=== PATIENT | female | born 1995 | race Caucasian/White ===

== ENCOUNTER 2016-08-31 17:57 | Emergency (ER) | payer BC ==
[2016-08-31 19:13] VITALS: BP 120/71
--- NOTE | 2016-08-31 19:23 | UC ---
Throat Pain/Nasal Eric HPI - HPI Summary HPI Summary: ST since 08/26/16. Getting worse. 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 No fever. Difficulty swallowing. Serology from 2013 in her chart shows pt has had prior mono. Pt does not recall mono. - History of Current Complaint Chief Complaint: UCGeneralIllness Stated Complaint: SORE THROAT Time Seen by Provider: 08/31/16 19:13 Hx Obtained From: Patient Hx Last Menstrual Period: 08/04-08/12 ?: No Onset/Duration: Sudden Onset, Lasting Hours, Still Present Severity: Moderate Pain Intensity: 5 Pain Scale Used: 0-10 Numeric Cough: None Associated Signs & Symptoms: Positive: Dysphagia, Drooling - but is able to swallow when she tries, it is just difficult - Allergies/Home Medications Allergies/Adverse Reactions: Allergies Allergy/AdvReac Type Severity Reaction Status Date / Time Latex Allergy Hives Verified 08/31/16 19:05 Home Medications: Home Medications Cetirizine* [ZyrTEC 10 MG TAB*] 1 tab DAILY 08/31/16 [History Confirmed 08/31/16 ] Ibuprofen TAB* [Advil TAB*] 400 mg Q4HR PRN 08/31/16 [History Confirmed 08/31/16 ] PMH/Surg Hx/FS Hx/Imm Hx Previously Healthy: Yes - Surgical History Surgical History: Yes Surgery Procedure, Year, and Place: appy, hernia - Family History Known Family History: Positive: Hypertension - Social History Occupation: Employed Full-time Lives: With Family Alcohol Use: Occasionally Substance Use Type: None Smoking Status (MU): Never Smoked Tobacco Review of Systems Constitutional: Negative Skin: Negative Eyes: Negative ENT: Sore Throat Respiratory: Negative Cardiovascular: Negative Gastrointestinal: Negative Genitourinary: Negative Motor: Negative Neurovascular: Negative Musculoskeletal: Negative Neurological: Negative Psychological: Negative All Other Systems Reviewed And Are Negative: Yes Physical Exam Triage Information Reviewed: Yes Appearance: Well-Nourished, Ill-Appearing, Pain Distress Vital Signs: Initial Vital Signs Temp 98.7 F 08/31/16 19:07 Pulse 85 08/31/16 19:07 Resp 16 08/31/16 19:07 BP 120/71 08/31/16 19:07 Pulse Ox 100 08/31/16 19:07 Vital Signs Reviewed: Yes Eyes: Positive: Conjunctiva Clear ENT: Positive: Hearing grossly normal, Pharyngeal erythema, Nasal congestion, TMs normal, Tonsillar swelling, Tonsillar exudate. Negative: Trismus, Muffled/ hoarse voice Neck: Positive: Supple, Enlarged Nodes @ - ant cervical, left worse than right Respiratory: Positive: Lungs clear, Normal breath sounds, No respiratory distress Cardiovascular: Positive: RRR, No Murmur, Pulses Normal, Brisk Capillary Refill Abdominal Exam: Normal Abdomen Description: Positive: Nontender, No Organomegaly, Soft. Negative: Distended, Guarding, Hepatomegaly, McBurney's Point Tenderness, Peritoneal Signs , Pulsatile Mass, Splenomegaly Bowel Sounds: Positive: Present Musculoskeletal: Positive: Strength Intact, ROM Intact Neurological: Positive: Alert, Muscle Tone Normal Psychological Exam: Normal Skin Exam: Normal Throat Pain/Nasal Course/Dx - Differential Dx/Diagnosis Differential Diagnosis/HQI/PQRI: Mononucleosis, Peritonsillar Abscess, Pharyngitis, Tonsillitis Provider Diagnoses: tonsillitis Discharge - Discharge Plan Condition: Stable Disposition: HOME Prescriptions: Amoxicillin/Clavulanate TAB* [Augmentin TAB 875*] 875 mg PO BID #20 tab predniSONE TAB* [Deltasone TAB*] 40 mg PO DAILY #10 tab Patient Education Materials: Tonsillitis (ED) Referrals: Milagros Chong MD [Primary Care Provider] - Additional Instructions: Dr. Elias recommends that you gargle with salt water or listerine. You should start the steroid (prednisone) and the antibiotic tonight, and then you may start the prednisone again in the morning to get the prednisone on a morning schedule. Take the antibiotic (Amoxicillin/clavulinic acid-Augmentin) twice a day until they are gone. Return to urgent care if you have any new or worsening symptoms.
[2016-08-31] MEDS ORDERED: Acetaminophen TAB* 325 MG PO ONE (19:25)
== END 2016-08-31 19:59 | disposition home or self-care (01) ==
LOC: UCCORT 17:57
DX: J03.90 Acute tonsillitis, unspecified (principal)
CPT/HCPCS: 87651; 99212; A9270-GY; G0463

== ENCOUNTER 2018-02-25 09:02 | Emergency (ER) | payer BC ==
[2018-02-25 09:23] VITALS: BP 107/65
--- NOTE | 2018-02-25 10:13 | UC ---
Minor Trauma HPI - HPI Summary HPI Summary: right mid back pain , right ribs pain x 1 day s/p fall on ice multiple times injury to her mid back , right ribs, right hip increase pain with movements, breathing , walking better with rest and ibuprofen - History of Current Complaint Chief Complaint: UCBackPain Stated Complaint: S/P FALL RIGHT SIDE/BACK PAIN Time Seen by Provider: 02/25/18 09:14 Hx Obtained From: Patient Hx Last Menstrual Period: 02/11/18 Onset/Duration: Sudden Onset, Lasting Hours - 2, Still Present Onset Of Pain: Immediate Severity Initially: Severe Severity Currently: Moderate Pain Intensity: 6 Mechanism Of Injury: Blunt Trauma, Fall From A Standing Position Aggravating Factor(s): Ambulation, Coughing, Deep Breaths, Movement, Weight Bearing Alleviating Factor(s): Rest - Allergies/Home Medications Allergies/Adverse Reactions: Allergies Allergy/AdvReac Type Severity Reaction Status Date / Time latex Allergy Hives Verified 02/25/18 09:15 PMH/Surg Hx/FS Hx/Imm Hx - Additional Past Medical History Additional PMH: ADHD herniated discs - Surgical History Surgical History: Yes Surgery Procedure, Year, and Place: appy, hernia - Family History Known Family History: Positive: None, Hypertension - Social History Alcohol Use: Occasionally Substance Use Type: None Smoking Status (MU): Never Smoked Tobacco Review of Systems All Other Systems Reviewed And Are Negative: Yes Skin: Positive: Negative Eyes: Positive: Negative ENT: Positive: Negative Respiratory: Positive: Negative Cardiovascular: Positive: Negative Is Patient Immunocompromised?: No Physical Exam Triage Information Reviewed: Yes Appearance: Well-Nourished, Pain Distress Vital Signs: Initial Vital Signs Temp 98.9 F 02/25/18 09:16 Pulse 76 02/25/18 09:16 Resp 17 02/25/18 09:16 BP 107/65 02/25/18 09:16 Pulse Ox 100 02/25/18 09:16 Vital Signs Reviewed: Yes Eyes: Positive: Conjunctiva Clear ENT: Positive: Normal ENT inspection, Hearing grossly normal, Pharynx normal Neck: Positive: Supple, Nontender, No Lymphadenopathy Respiratory: Positive: Chest non-tender, Lungs clear, Normal breath sounds, Other: - tenderness right mid ribs Cardiovascular: Positive: RRR, No Murmur, Pulses Normal Abdominal Exam: Normal Abdomen Description: Positive: Nontender, No Organomegaly, Soft. Negative: CVA Tenderness (R), CVA Tenderness (L), Distended, Guarding Bowel Sounds: Positive: Present Musculoskeletal: Positive: Other: - right hip : no swelling, no ecchymosis, + diffuse tenderness, good ROM Neurological Exam: Normal Neurological: Positive: Alert Skin Exam: Normal UC Physical Exam Vital Signs On Initial Exam: Initial Vitals Temp Pulse Resp BP Pulse Ox 98.9 F 76 17 107/65 100 02/25/18 09:16 02/25/18 09:16 02/25/18 09:16 02/25/18 09:16 02/25/18 09:16 - Back Exam Back Exam: normal inspection, no vertebral tenderness, decreased range of motion , vertebral lumbar tenderness Diagnostics - Laboratory Diagnostic Studies Completed/Ordered: Order Information: [facility] 2 VWS. Accession Number: [id number]. CPT: 55626. INDICATION: Back injury. COMPARISON: Comparison is made with a prior x-ray of the dorsal spine from November 112010. TECHNIQUE: AP and lateral films of the dorsal spine were obtained. FINDINGS: There is a mild dorsal scoliosis convex toward the right side. The vertebra are. otherwise in normal alignment. No fracture is seen. Disc spaces appear maintained. IMPRESSION: NO EVIDENCE FOR FRACTURE. xray right ribs : no evidence for fracture Minor Trauma Course/Dx - Differential Dx/Diagnosis Provider Diagnosis: Contusion of rib on right side, Contusion, back Discharge - Sign-Out/Discharge Documenting (check all that apply): Patient Departure All imaging exams completed and their final reports reviewed: Yes - Discharge Plan Condition: Stable Disposition: HOME Prescriptions: Cyclobenzaprine TAB* [Flexeril 10 MG TAB*] 10 mg PO BID PRN #20 tab PRN Reason: Pain Naproxen [Naprosyn 500 mg tab] 500 mg PO BID #20 tablet Patient Education Materials: Contusion in Adults (ED), Rib Contusion (ED) Forms: *Work Release Referrals: Maribeth Dodge PA [Primary Care Provider] - 7 Days - Billing Disposition and Condition Condition: STABLE Disposition: Home
== END 2018-02-25 10:21 | disposition home or self-care (01) ==
LOC: UCCORT 09:02
DX: S20.20XA Contusion of thorax, unspecified, initial encounter (principal); S20.229A Contusion of unspecified back wall of thorax, initial encounter; W00.0XXA Fall on same level due to ice and snow, initial encounter; Y92.9 Unspecified place or not applicable
CPT/HCPCS: 72070; 99212; G0463

== ENCOUNTER 2019-03-11 08:57 | Emergency (ER) | payer SELFPAY ==
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
[2019-03-11 09:35] VITALS: BP 109/78
== END 2019-03-11 09:33 | disposition home or self-care (01) ==
LOC: ED 08:57
DX: R53.83 Other fatigue (principal); R53.1 Weakness; Z91.040 Latex allergy status
CPT/HCPCS: 99282

== ENCOUNTER 2022-07-05 17:06 | Inpatient (IN) ==
[2022-07-05 18:48] LABS: Urine Appearance Cloudy; Urine Bilirubin Negative (Negative); Urine Blood Negative (Negative); Urine Color Yellow; Urine Glucose Negative (Negative); Urine Ketones 1+ (Negative); Urine Nitrite Negative (Negative); Urine Protein 1+(30 mg/dL) (Negative); Urine Specific Gravity 1.024 (1.002-1.030); Urine Urobilinogen Negative (Negative)
[2022-07-05 18:52] LABS: Urine Bacteria 1+ (Absent); Urine Red Blood Cell Trace(0-2/hpf) (Absent); Urine Squamous Epithelial Cell Present (Absent); Urine White Blood Cell Trace(0-5/hpf) (Absent)
[2022-07-05 19:15] LABS: Urine Benzodiazepine Screen None Detected (None Detect); Urine Cannabinoids Screen None Detected (None Detect); Urine Opiates Screen None Detected (None Detect)
[2022-07-06] MEDS ORDERED: miSOPROStol 100 mcg TAB VAGINAL ONE (09:25)
[2022-07-06] MEDS: CMCS: Lisdexamfetamine 10 mg CAP(NF) PO SCH (10:00)
[2022-07-06] MEDS ORDERED: Dibucaine 1% OINT 28.35 GM TUBE PR PRN (14:26)
[2022-07-06] MEDS ORDERED: Lactated Ringers 1000 ml BAG 1,000 ML IV ONE (15:23)
[2022-07-06 15:56] LABS: ABS Lymphocytes 1.2 10^3/uL (1.0-4.8); ABS Monocytes 0.6 10^3/uL (0.0-0.9); ABS Neutrophils 4.4 10^3/uL (1.5-7.6); ABS Nucleated RBC 0.01 10^3/ul; Eosinophil % 0.4 %; Hematocrit 27.5 % (35-45); Hemoglobin 9.6 g/dL (11.5-14.3); Lymphocyte % 19.5 %; Mean Corpuscular Hemoglobin 30.1 pg (27-33); Mean Corpuscular Hgb Conc 34.9 g/dL (31-36); Mean Corpuscular Volume 86.5 fL (80-97); Mean Platelet Volume 9.4 fL (7.5-11.2); Nucleated Red Blood Cells % 0.1 /100 WBC (0.0-0.4); Platelet Count 199 10^3/uL (150-450); Red Blood Count 3.18 10^6/uL (3.63-4.92); White Blood Count 6.2 10^3/uL (3.8-11.8)
[2022-07-06] MEDS ORDERED: miSOPROStol 100 mcg TAB PO ONE (16:05)
[2022-07-06] MEDS ORDERED: Dinoprostone 10 MG VAG.SUPP VAGINAL ONE (20:24)
[2022-07-06] MEDS ORDERED: Morphine 10 MG/ML VIAL (1 ml) IV ONE (20:33)
[2022-07-06] MEDS ORDERED: Promethazine INJ(RESTRICTED) 25 MG/ML 1 ml VIAL IV ONE (20:37)
[2022-07-07] MEDS ORDERED: Oxytocin in LR 20,000 MILLI.UNIT/1,000 ML BAG IV SCH (09:30)
[2022-07-07] MEDS: Lactated Ringers 1000 ml BAG 1,000 ML IV SCH ×2 (10:00→18:01)
[2022-07-07] MEDS: CMCS: Lisdexamfetamine 10 mg CAP(NF) PO SCH (10:33)
[2022-07-07] MEDS ORDERED: Ondansetron 4 mg VIAL 2 MG/ML 2 ml VIAL IV PRN ×2 (15:34→19:24)
[2022-07-07] MEDS ORDERED: Morphine 2 MG/ML SYRINGE IV ONE (15:34)
[2022-07-07] MEDS ORDERED: Sodium Citrate/Citric Acid LIQ 15 ML UDC PO ONE (17:36)
[2022-07-07] MEDS ORDERED: ceFOXitin 2 GM IVPREMIX 2 GM/50 ML BAG IVPB ONE (17:39)
[2022-07-07] MEDS ORDERED: fentaNYL 100 mcg/2 ml 50 MCG/ML VIAL ONE (17:59)
[2022-07-07] MEDS ORDERED: Morphine PF AMP (0.5MG/ML) 5 MG/10 ML AMP ONE (17:59)
[2022-07-07] MEDS ORDERED: Dexmedetomidine 200 mcg/2 ml 2 ml VIAL (200 mcg) ONE (18:02)
[2022-07-07] MEDS ORDERED: Methylergonovine 0.2 mg AMPULE 1 ml AMP ONE (18:06)
[2022-07-07] MEDS ORDERED: Carboprost Tromethamine 250 mcg 1 ml VIAL ONE (18:06)
[2022-07-07] MEDS ORDERED: Glycerin ADULT 2.4 gm SUPP PR PRN (19:14)
[2022-07-07] MEDS ORDERED: Carboprost Tromethamine 250 mcg 1 ml VIAL IM ONE (19:14)
[2022-07-07] MEDS ORDERED: Dibucaine 1% OINT 28.35 GM TUBE PR PRN (19:14)
[2022-07-07] MEDS ORDERED: Witch Hazel PAD JAR TOPICAL PRN (19:14)
[2022-07-07] MEDS ORDERED: Naloxone 0.4 mg VIAL 0.4 mg/ml 1 ml VIAL IV PUSH PRN (19:24)
[2022-07-07] MEDS ORDERED: Metoclopramide 5 MG/ML VIAL (10 mg) IV PRN (19:24)
[2022-07-07 19:26] LABS: Urine Appearance Clear; Urine Bilirubin Negative (Negative); Urine Blood Negative (Negative); Urine Color Yellow; Urine Glucose Negative (Negative); Urine Ketones Negative (Negative); Urine Nitrite Negative (Negative); Urine Protein Negative (Negative); Urine Specific Gravity 1.008 (1.002-1.030); Urine Urobilinogen Negative (Negative)
[2022-07-07] MEDS ORDERED: Lactated Ringers 1000 ml BAG 1,000 ML IV SCH (20:00)
[2022-07-07] MEDS: Oxytocin in LR 20,000 MILLI.UNIT/1,000 ML BAG IV SCH (20:53)
[2022-07-08] MEDS: Oxytocin in LR 20,000 MILLI.UNIT/1,000 ML BAG IV SCH ×2 (00:10→04:32)
[2022-07-08] MEDS ORDERED: Terbutaline INJ 1 MG/ML 1 ml VIAL SUBCUT ONE (03:41)
[2022-07-08 06:27] LABS: ABS Lymphocytes 1.3 10^3/uL (1.0-4.8); ABS Neutrophils 8.1 10^3/uL (1.5-7.6); ABS Nucleated RBC 0.02 10^3/ul; Eosinophil % 0.3 %; Hematocrit 21.7 % (35-45); Hemoglobin 7.6 g/dL (11.5-14.3); Lymphocyte % 12.6 %; Mean Corpuscular Hemoglobin 30.3 pg (27-33); Mean Corpuscular Hgb Conc 35.1 g/dL (31-36); Mean Corpuscular Volume 86.4 fL (80-97); Mean Platelet Volume 9.3 fL (7.5-11.2); Nucleated Red Blood Cells % 0.1 /100 WBC (0.0-0.4); Platelet Count 144 10^3/uL (150-450); Red Blood Count 2.51 10^6/uL (3.63-4.92); Red Cell Distribution Width 14.7 % (12-17); White Blood Count 10.5 10^3/uL (3.8-11.8)
[2022-07-08] MEDS: CMCS: Lisdexamfetamine 10 mg CAP(NF) PO SCH (09:30)
[2022-07-08] MEDS: Witch Hazel PAD JAR TOPICAL SCH ×2 (12:47→12:51)
[2022-07-09] MEDS: CMCS: Lisdexamfetamine 10 mg CAP(NF) PO SCH (07:40)
[2022-07-10 09:21] VITALS: BP 109/58
== END 2022-07-10 13:48 | disposition home or self-care (01) | DRG 540 ==
LOC: MCHOBOUT 17:06 → MCHOB 18:05
PROVIDERS: ADMIT Midwife; ATTEND Obstetrics & Gynecology